=== PATIENT | female | born 1985 | race Caucasian/White ===

== ENCOUNTER 2016-12-03 13:18 | Emergency (ER) | payer OTHER ==
[~2016-12-03] VITALS: Ht 170.2 cm; Wt 69.9 kg
[~2016-12-03 13:18] MED LIST: AMBIEN5 M1 PO; CIPRO500 MG PO; MOTRIN600 MG PO; NICORETTE2 MG MM; NO MEDICATIONS; NO MEDS PER PT; OLANZAPINE2.5 MG PO; OLANZAPINE5 MG PO; PRENATAL ONE T1 EACH PO; PRENATAL VITAM1 EAC6 PO; RISPERDAL1 MG PO; RISPERDAL2 MG PO
[2016-12-03 15:03] LABS: ADD MIUA? YES; BILIRUBIN NEGATIVE; BLOOD SMALL; COLOR YELLOW ((YELLOW)); GLUCOSE (STRIP) NEGATIVE; KETONES NEGATIVE; LEUKOCYTES NEGATIVE; NITRITE NEGATIVE; PROTEIN (STRIP) NEGATIVE; SPECIFIC GRAVITY 1.027 (1.000-1.030); UROBILINOGEN 0.2 MG/DL (0.2-1.0)
[2016-12-03 15:05] LABS: BACTERIA RARE /HPF; EPITHELIAL CELLS 1+ /HPF; MUCUS TRACE /LPF; RED BLOOD CELLS 0-5 /HPF (0-5); UCUL ADDED? NO; WHITE BLOOD CELLS 0-5 /HPF (0-5)
[2016-12-03 15:30] LABS: HEMATOCRIT 40.2 % (36.0-46.0); MCH 29.5 PG (29.0-34.0); MCHC 34.6 G/DL (30.0-36.0); MCV 85.4 FL (83-99); MEAN PLAT.VOLUME 9.4 uM^3 (9.5-12.4); PLATELET COUNT 362 K/uL (156-360); RBC DIS.WIDTH-CV 13.7 % (11.8-14.6); RBC DIS.WIDTH-SD 41.9 % (39-53); RED BLOOD COUNT 4.71 M/uL (3.80-5.20); WHITE BLOOD COUNT 11.9 K/uL (4.1-10.2)
[2016-12-03 15:37] LABS: CHLORIDE 104 mEq/L (99-109); POTASSIUM 3.9 mEq/L (3.7-5.4); SODIUM 140 mEq/L (136-147)
[2016-12-03 15:40] LABS: GLUCOSE 119 mg/dL (70-99)
[2016-12-03 15:41] LABS: ANION GAP 14 MEQ/L (2-14)
[2016-12-03 15:42] LABS: TOTAL BILIRUBIN 0.9 mg/dL (0.0-1.0)
[2016-12-03 15:43] LABS: ALKALINE PHOSPHATASE 73 IU/L (3-129); GFR ESTIMATE (CALCULATED) > 59 mL/min/
[2016-12-03 15:44] LABS: UREA NITROGEN (BUN) 15 mg/dL (9-23)
[2016-12-03 15:47] LABS: LIPASE 8 U/L (1.0-51.0)
[2016-12-03 15:54] LABS: QUANTITATIVE HCG < 4.0 MIU/ML
[2016-12-03 16:55] VITALS: BP 118/84
== END 2016-12-03 17:17 | disposition home or self-care (01) ==
LOC: EME 13:18
PROVIDERS: Emergency Medicine
DX: Z32.02 Encounter for pregnancy test, result negative (principal); R10.9 Unspecified abdominal pain; R11.0 Nausea; F20.9 Schizophrenia, unspecified
CPT/HCPCS: 80053; 81003; 83690; 84702; 85027; 99281; 99283

== ENCOUNTER 2017-08-29 14:43 | Emergency (ER) | payer OTHER ==
[~2017-08-29] VITALS: Ht 170.2 cm; Wt 68.3 kg
[2017-08-29 15:22] LABS: ADD MIUA? YES; BILIRUBIN NEGATIVE; BLOOD NEGATIVE; COLOR YELLOW ((YELLOW)); GLUCOSE (STRIP) NEGATIVE; KETONES NEGATIVE; LEUKOCYTES MODERATE; NITRITE NEGATIVE; PROTEIN (STRIP) NEGATIVE; SPECIFIC GRAVITY 1.011 (1.000-1.030); UROBILINOGEN 0.2 MG/DL (0.2-1.0)
[2017-08-29 15:36] LABS: INTERNAL CONTROL VALID? YES
[2017-08-29 15:41] LABS: AMPHETAMINE NEGATIVE (500 ng/mL); BARBITURATES NEGATIVE (200 ng/mL); BENZODIAZEPINES NEGATIVE (150 ng/mL); COCAINE NEGATIVE (150 ng/mL); INTERNAL CONTROLS VALID? YES; METHADONE NEGATIVE (200 ng/mL); METHAMPHETAMINE NEGATIVE (500 ng/mL); OPIATES (MORPHINE) NEGATIVE (100 ng/mL); OXYCODONE NEGATIVE (100 ng/mL); PHENCYCLIDINE NEGATIVE (25 ng/mL); PROPOXYPHENE NEGATIVE (300 ng/mL); THC CANNABINOIDS NEGATIVE (50 ng/mL); TRICYCLIC ANTIDEPRESSANTS NEGATIVE (300 ng/mL)
[2017-08-29 15:45] LABS: BACTERIA NONE SEEN /HPF; EPITHELIAL CELLS RARE /HPF; MUCUS TRACE /LPF; RED BLOOD CELLS 0-5 /HPF (0-5); UCUL ADDED? YES
[2017-08-29 16:42] VITALS: BP 114/72
== END 2017-08-29 16:44 | disposition home or self-care (01) ==
LOC: EME 14:43
PROVIDERS: Emergency Medicine
DX: F29 Unspecified psychosis not due to a substance or known physiological condition (principal); F25.9 Schizoaffective disorder, unspecified; Z91.14 Patient's other noncompliance with medication regimen; Z53.20 Procedure and treatment not carried out because of patient's decision for unspecified reasons; F17.200 Nicotine dependence, unspecified, uncomplicated
CPT/HCPCS: 80053; 81003; 84703; 85025; 87086; 99281; 99285; G0480

== ENCOUNTER 2017-09-14 23:13 | Emergency (ER) | payer OTHER ==
[~2017-09-14] VITALS: Ht 170.2 cm; Wt 66.6 kg
[2017-09-15 00:12] LABS: ADD MIUA? YES; BILIRUBIN NEGATIVE; BLOOD NEGATIVE; COLOR YELLOW ((YELLOW)); GLUCOSE (STRIP) NEGATIVE; KETONES NEGATIVE; LEUKOCYTES SMALL; NITRITE NEGATIVE; PROTEIN (STRIP) NEGATIVE; SPECIFIC GRAVITY 1.014 (1.000-1.030); UROBILINOGEN 0.2 MG/DL (0.2-1.0)
[2017-09-15 00:25] LABS: BACTERIA NONE SEEN /HPF; EPITHELIAL CELLS 1+ /HPF; MUCUS TRACE /LPF; RED BLOOD CELLS 0-5 /HPF (0-5); UCUL ADDED? YES
[2017-09-15 00:32] LABS: INTERNAL CONTROL VALID? YES
[2017-09-15] MEDS ORDERED: KEFLEX500 MG PO (00:53)
[2017-09-15 01:08] VITALS: BP 115/84
== END 2017-09-15 01:08 | disposition home or self-care (01) ==
LOC: EME → EDBD 23:13 → EME 23:13
DX: R10.9 Unspecified abdominal pain (principal); N39.0 Urinary tract infection, site not specified; F41.9 Anxiety disorder, unspecified; F32.9 Major depressive disorder, single episode, unspecified; F20.9 Schizophrenia, unspecified; Z87.891 Personal history of nicotine dependence; Z87.898 Personal history of other specified conditions
CPT/HCPCS: 80053; 81003; 84702; 84703; 85027; 87086; 99281; 99285

== ENCOUNTER 2017-10-04 18:40 | Inpatient (IN) | payer OTHER ==
[~2017-10-04] VITALS: Ht 170.2 cm; Wt 67.5 kg
[~2017-10-04 18:40] MED LIST changes: +KEFLEX500 MG PO
[2017-10-04 20:02] LABS: HEMATOCRIT 40.2 % (36.0-46.0); MCH 31.1 PG (29.0-34.0); MCHC 34.6 G/DL (30.0-36.0); MCV 89.9 FL (83-99); MEAN PLAT.VOLUME 9.2 uM^3 (9.5-12.4); PLATELET COUNT 384 K/uL (156-360); RBC DIS.WIDTH-CV 13.2 % (11.8-14.6); RBC DIS.WIDTH-SD 43.1 % (39-53); RED BLOOD COUNT 4.47 M/uL (3.80-5.20); WHITE BLOOD COUNT 16.1 K/uL (4.1-10.2)
[2017-10-04 20:13] LABS: CHLORIDE 106 mEq/L (99-109); POTASSIUM 3.8 mEq/L (3.7-5.4); SODIUM 137 mEq/L (136-147)
[2017-10-04 20:15] LABS: GLUCOSE 104 mg/dL (70-99)
[2017-10-04 20:16] LABS: AMPHETAMINE NEGATIVE (500 ng/mL); BARBITURATES NEGATIVE (200 ng/mL); BENZODIAZEPINES NEGATIVE (150 ng/mL); COCAINE NEGATIVE (150 ng/mL); INTERNAL CONTROLS VALID? YES; METHADONE NEGATIVE (200 ng/mL); METHAMPHETAMINE NEGATIVE (500 ng/mL); OPIATES (MORPHINE) NEGATIVE (100 ng/mL); OXYCODONE NEGATIVE (100 ng/mL); PHENCYCLIDINE NEGATIVE (25 ng/mL); PROPOXYPHENE NEGATIVE (300 ng/mL); THC CANNABINOIDS NEGATIVE (50 ng/mL); TRICYCLIC ANTIDEPRESSANTS NEGATIVE (300 ng/mL)
[2017-10-04 20:16] LABS: ANION GAP 10 MEQ/L (2-14)
[2017-10-04 20:18] LABS: GFR ESTIMATE (CALCULATED) > 59 mL/min/; SERUM ETHYL ALCOHOL < 10 mg/dL
[2017-10-04 20:20] LABS: UREA NITROGEN (BUN) 5 mg/dL (9-23)
[2017-10-04 20:22] LABS: SALICYLATE < 5.0 MG/DL (15-30)
[2017-10-04 20:29] LABS: QUANTITATIVE HCG < 4.0 MIU/ML
[2017-10-04 21:58] VITALS: BP 125/59
[2017-10-05 07:49] VITALS: BP 133/70
[2017-10-05 15:22] VITALS: BP 119/59
[2017-10-06 07:48] VITALS: BP 91/47
[2017-10-06 15:30] VITALS: BP 124/70
[2017-10-07 07:54] VITALS: BP 95/51
[2017-10-07 15:25] VITALS: BP 115/72
[2017-10-08 07:44] VITALS: BP 83/45
[2017-10-08] MEDS ORDERED: RISPERDAL2 MG PO (10:58)
== END 2017-10-08 12:31 | disposition home or self-care (01) | DRG 885 ==
LOC: EME 18:40 → 1WEST 20:28 → EDOF 20:28 → ENRESERV 21:27 → 1WEST 21:51
PROVIDERS: Emergency Medicine
DX: F20.3 Undifferentiated schizophrenia (principal); R45.851 Suicidal ideations; Z91.19 Patient's noncompliance with other medical treatment and regimen; F41.9 Anxiety disorder, unspecified; F32.9 Major depressive disorder, single episode, unspecified; F17.200 Nicotine dependence, unspecified, uncomplicated; F10.10 Alcohol abuse, uncomplicated; F19.10 Other psychoactive substance abuse, uncomplicated
CPT/HCPCS: 80048; 84702; 85027; 90837; 97165 GO; 99281; 99285; G0480